=== PATIENT | female | born 1970 | race Caucasian/White ===

== ENCOUNTER → 2016-11-12 | Outpatient (CLI) | payer OTHER ==
--- NOTE | 2016-11-12 10:46 | REP ---
BILATERAL MAMMOGRAM: FAMILY HISTORY: Breast cancer in sister at age 40. Moderately dense fibroglandular tissue is seen bilaterally in a heterogeneous pattern. A rounded nodular opacity laterally on the left CC view measures 9 mm in diameter and is not definitely seen on the left MLO view. No other definite mass or architectural distortion is seen. No clustered microcalcifications are seen. IMPRESSION: ACR 0, incomplete. 9 mm nodular density lateral left breast on the CC view is not seen on the MLO view. Recommend spot compression views and ultrasound to further evaluate. ACR 0, incomplete. Given the patient's family history and dense breast parenchyma, I would also recommend an MRI of the breasts. BI-RADS/ACR category 0 mammogram, incomplete. Additional imaging and/or prior images are needed before a final assessment can be assigned. This mammogram was interpreted with the aid of an FDA-approved computer-aided detection system. The patient states she/he had a clinical breast exam in 10/2016. The patient letter being requested is M0. Signed by Torin Brandon MD 11/13/2016 04:40 P
== END ==
LOC: M RAD 08:46
PROVIDERS: ATTEND Obstetrics & Gynecology
DX: Z12.4 Encounter for screening for malignant neoplasm of cervix (principal)

== ENCOUNTER → 2016-11-27 | Outpatient (CLI) | payer OTHER ==
--- NOTE | 2016-11-27 16:55 | REP ---
DIAGNOSTIC MAMMOGRAM LEFT BREAST: Multiple spot compression views left breast performed to evaluate a possible nodular opacity seen on the recent mammogram 11/12/2016, on the left CC view. The nodular density appears to compress out to an unchanged appearance compared to other multiple prior exams. I do not see a definite persisting nodule. Real-time sonographic evaluation of the outer left breast demonstrates dense fibroglandular tissue. There does appear to be a bilobed cyst at 2 o'clock position measuring 9 x 7 x 10 mm. IMPRESSION: ACR 2 benign. Suspected nodular opacity laterally in the left breast does not definitely persist on spot compression views. There is a bilobed cyst in that region. The findings appear benign. Recommend followup mammogram in one year. The patient letter being requested is M1. Signed by Torin Brandon MD 11/28/2016 07:55 P
== END ==
LOC: M RAD 13:52
PROVIDERS: ATTEND Obstetrics & Gynecology
DX: R06.83 Snoring (principal)

== ENCOUNTER → 2017-08-22 | Outpatient (REF) | payer OTHER ==
[2017-08-22 15:45] LABS: INFLUENZA A AMPLIFICATION POSITIVE (NEGATIVE); INFLUENZA B AMPLIFICATION NEGATIVE (NEGATIVE)
== END ==
LOC: M LAB REF 14:23
DX: J11.1 Influenza due to unidentified influenza virus with other respiratory manifestations (principal)

== ENCOUNTER → 2017-12-16 | Outpatient (CLI) | payer OTHER | LOC: M RAD 11:31 | DX: Z12.31 Encounter for screening mammogram for malignant neoplasm of breast (principal) | CPT/HCPCS: 77067 ==

== ENCOUNTER → 2018-12-21 | Outpatient (CLI) | payer OTHER ==
--- NOTE | 2018-12-21 08:52 | REPMRS ---
Patient History The patient states she had a clinical breast exam in November 2018. Family history of breast cancer at age 40 in sister, unknown cancer under age 50 in paternal grandmother. Took hormonal contraceptives for 2 years. Took unspecified hormones for 1 year. 3D TOMOSYNTHESIS WAS PERFORMED. Digital Mammo Screening Bilat: December 21, 2018 - Exam #: [id number] Bilateral CC and MLO view(s) were taken. Technologist: Joseline Juárez, Technologist Prior study comparison: December 16, 2017, bilateral digital mammo screening bilat performed at [facility]. November 27, 2016, left breast digital mammo diagnostic unilateral performed at [facility]. FINDINGS: The breast tissue is heterogeneously dense. This may lower the sensitivity of mammography. There has been no change in the appearance of the mammogram from the prior studies. There is a moderate amount of residual fibroglandular tissue which is fairly symmetric. There is no interval development of dominant mass, areas of architectural distortion, or clustered microcalcification typical of malignancy. Assessment: BI-RADS/ACR category 1 mammogram. Negative Mammogram. Recommendation Routine screening mammogram in 1 year (for women over age 40). This mammogram was interpreted with the aid of an FDA-approved computer-aided dectection system. Electronically Signed By: Torin Brandon MD 12/21/18 0852
== END ==
LOC: M RAD 07:18
PROVIDERS: ATTEND Obstetrics & Gynecology
DX: Z12.31 Encounter for screening mammogram for malignant neoplasm of breast (principal); Z80.3 Family history of malignant neoplasm of breast; Z92.0 Personal history of contraception

== ENCOUNTER → 2019-01-19 | Outpatient (REF) | payer OTHER ==
[2019-01-19 13:32] LABS: HEMATOCRIT 42.8 % (36.0-47.0); HEMOGLOBIN 14.3 g/dl (12.0-15.5); MEAN CORPUSCULAR HEMOGLOBIN 31.7 pg (27.0-33.0); MEAN CORPUSCULAR HGB CONC 33.4 g/dl (32.0-36.5); MEAN CORPUSCULAR VOLUME 94.9 fl (80.0-96.0); PLATELET COUNT, AUTOMATED 312 10^3/uL (150-450); RED BLOOD COUNT 4.51 10^6/uL (4.00-5.40); WHITE BLOOD COUNT 5.5 10^3/uL (4.0-10.0)
[2019-01-19 13:55] LABS: FOLLICLE STIMULATING HORMONE 35.5 mIU/mL; FREE T4 0.78 NG/DL (0.76-1.46); LUTEINIZING HORMONE 23.1 mIU/mL; THYROID STIMULATING HORMONE 1.63 uIU/ML (0.358-3.740)
== END ==
LOC: M LAB REF 12:38
PROVIDERS: ATTEND Obstetrics & Gynecology
DX: N92.1 Excessive and frequent menstruation with irregular cycle (principal)

== ENCOUNTER → 2020-01-05 | Outpatient (REF) | payer OTHER ==
[~2020-01-05] MED LIST: AZEL0.05 OD; AZEL0.1S NARES; BUPR50TA PO; CETI5SOL3 PO; FLON1SPR; LEXA1TAB2 PO; MORP15TASA PO; OXYC-517 PO; PROP60TA14 PO; QC A650T3 PO; VITA500075 PO; WELLTAB38 PO; XARE10TA PO; ZYRTTAB8 PO
[2020-01-05 12:49] LABS: HEMATOCRIT 39.6 % (36.0-47.0); HEMOGLOBIN 13.4 g/dl (12.0-15.5); MEAN CORPUSCULAR HEMOGLOBIN 31.5 pg (27.0-33.0); MEAN CORPUSCULAR HGB CONC 33.8 g/dl (32.0-36.5); PLATELET COUNT, AUTOMATED 285 10^3/uL (150-450); RED BLOOD COUNT 4.26 10^6/uL (4.00-5.40)
[2020-01-05 13:26] LABS: ALBUMIN 3.5 GM/DL (3.2-5.2); ALT/SGPT 88 U/L (12-78); BILIRUBIN,TOTAL 0.4 MG/DL (0.2-1.0); BLOOD UREA NITROGEN 10 MG/DL (7-18); CALCIUM LEVEL 8.6 MG/DL (8.5-10.1); CARBON DIOXIDE LEVEL 28 MEQ/L (21-32); CHLORIDE LEVEL 108 MEQ/L (98-107); CREATININE FOR GFR 0.72 MG/DL (0.55-1.30); FREE T4 0.84 NG/DL (0.76-1.46); GLOMERULAR FILTRATION RATE > 60.0 (>58); GLUCOSE, FASTING 119 MG/DL (70-100); POTASSIUM SERUM 4.2 MEQ/L (3.5-5.1); SODIUM LEVEL 143 MEQ/L (136-145); TOTAL PROTEIN 6.7 GM/DL (6.4-8.2)
[2020-01-06 18:19] LABS: TOTAL 25(OH) VITAMIN D 43.5 NG/ML (30.0-100.0); VITAMIN B12 LEVEL 742 PG/ML
[2020-01-06 18:20] LABS: FOLATE 15.5 NG/ML
== END ==
LOC: M SFHCADAM 10:47
PROVIDERS: ATTEND Physician Assistant
DX: R53.82 Chronic fatigue, unspecified (principal); E53.9 Vitamin B deficiency, unspecified; Z01.818 Encounter for other preprocedural examination; E53.8 Deficiency of other specified B group vitamins

== ENCOUNTER → 2020-01-06 | Outpatient (CLI) | payer OTHER | LOC: M LABSMTC 10:57 | PROVIDERS: ATTEND Anesthesiology | DX: Z11.59 Encounter for screening for other viral diseases (principal) | CPT/HCPCS: C9803; U0003 ==

== ENCOUNTER 2020-01-09 06:52 | Inpatient (IN) | payer OTHER ==
--- NOTE | 2020-01-06 06:35 | HPE ---
DATE OF PLANNED ADMISSION: 01/09/2020 PREOPERATIVE PHYSICAL: Kat Carlson is a pleasant 49-year-old female with a flat foot deformity and bunion who presents for preoperative appointment. She continues to have pain in the medial aspect of her foot and a bunion deformity. She has failed conservative measures. PAST MEDICAL HISTORY: Positive for anxiety and depression. She is otherwise healthy. ALLERGIES: To PENICILLIN. PREVIOUS SURGERIES: She had a tubal in 2010 and sinus surgery in 1999. SOCIAL HISTORY: She does not smoke. She occasionally uses alcohol. PHYSICAL EXAMINATION: GENERAL: Well appearing, alert and oriented, in no acute distress. PULMONARY: Regular nonlabored breathing. CARDIOVASCULAR: Regular rate and rhythm. ABDOMEN: Soft and nontender. MUSCULOSKELETAL: Advanced flat foot deformity with pain along the medial aspect of the foot and ankle and hallux valgus deformity. She is neurovascularly intact. IMAGING: Radiographs of the ankle and foot demonstrate a hallux valgus deformity and flat foot deformity. IMPRESSION: Left foot flat foot deformity and hallux valgus deformity. PLAN: Flat foot reconstruction, including a flexor digitorum longus (FDL) transfer, medializing calcaneal osteotomy, possible gastrocnemius resection, possible lateral column lengthening. I will also fix her bunion with a Lapidus/Jarret procedure and possible 1st metatarsophalangeal (MTP) fusion given the severity of her bunion. Risks and benefits of the surgery were discussed with the patient in detail and include, but are not limited to, infection, damage to nerves and blood vessels, continued pain and stiffness, need for additional procedures. Informed consent was obtained. She will spend one night in the hospital.
[~2020-01-09] VITALS: Ht 170.2 cm; Wt 96.6 kg
[~2020-01-09 06:52] MED LIST changes: +LIDOCAINE 1% MDV 20ML VIAL SQ PRN; +MIDAZOLAM INJ 2MG/2ML VIAL (J2250 PER 1MG) IV SCH; -MORP15TASA PO; -OXYC-517 PO; -QC A650T3 PO; -XARE10TA PO; +fentaNYL 100 MCG/2 ML INJECTION (J3010) IV SCH
[2020-01-09] MEDS ORDERED: LR 1,000 ML IV ONE (07:00)
[2020-01-09] MEDS ORDERED: CLINDAMYCIN 900 MG in IV 1 EA IV ONE (07:00)
[2020-01-09] MEDS ORDERED: BUPIVACAINE HCL 0.25% 30ML VIAL As Ordered ONE (08:09)
[2020-01-09] MEDS: BUPIVACAINE HCL 0.5% 30 ML VIAL As Ordered ONE ×2 (08:09→14:07)
[2020-01-09] MEDS ORDERED: MIDAZOLAM INJ 2MG/2ML VIAL (J2250 PER 1MG) As Ordered ONE ×2 (08:27→09:00)
[2020-01-09] MEDS ORDERED: fentaNYL 100 MCG/2 ML INJECTION (J3010) As Ordered ONE (08:27)
[2020-01-09] MEDS ORDERED: ONDANSETRON 4MG/2ML VIAL As Ordered ONE (09:00)
[2020-01-09] MEDS ORDERED: propofoL 200 MG/20 ML VIAL As Ordered ONE (09:00)
[2020-01-09] MEDS ORDERED: fentaNYL 250 MCG/5 ML INJECTION (J3010) As Ordered ONE (09:00)
[2020-01-09] MEDS ORDERED: ROCURONIUM BROMIDE 50 MG/5 ML VIAL As Ordered ONE ×3 (09:00→12:13)
[2020-01-09] MEDS ORDERED: METOCLOPRAMIDE INJ 10MG/2ML VIAL (J2765 PER 1) As Ordered ONE (09:00)
[2020-01-09] MEDS ORDERED: dexameTHASONE 4 MG/ML 1ML VIAL (J1100 PER 1MG) As Ordered ONE (09:00)
[2020-01-09] MEDS ORDERED: SEVOFLURANE INHAL SOLN 250 ML BTL As Ordered ONE (09:00)
[2020-01-09] MEDS ORDERED: SUGAMMADEX SODIUM 500 MG/5 ML VIAL (BRIDION) As Ordered ONE (09:00)
[2020-01-09] MEDS ORDERED: LIDOCAINE 2% 100MG/5ML SDV (FOR ANES.) As Ordered ONE (09:00)
[2020-01-09] MEDS ORDERED: fentaNYL 100 MCG/2 ML INJECTION (J3010) IV ONE (09:15)
[2020-01-09] MEDS ORDERED: MIDAZOLAM INJ 2MG/2ML VIAL (J2250 PER 1MG) IV ONE (09:15)
[2020-01-09] MEDS ORDERED: HYDROmorphone HCL 2 MG/ML 1ML VIAL (J1170) As Ordered ONE (10:48)
[2020-01-09] MEDS ORDERED: ACETAMINOPHEN 1000MG 100ML IV BTL (OFIRMEV) (J0131 PER 10MG) As Ordered ONE (10:49)
[2020-01-09] MEDS ORDERED: ROPIvacaine 0.5% 30ML INJECTION (J2795 PER 1MG) ONE (12:57)
[2020-01-09] MEDS ORDERED: EPINEPHrine INJ 1 MG/ML 1ML AMP ONE (12:57)
[2020-01-09] MEDS ORDERED: dexameTHASONE 10MG/1ML VIAL PRES.FREE (J1100 PER 1MG) ONE (12:57)
[2020-01-09] MEDS ORDERED: DESFLURANE 240 ML INHALANT As Ordered ONE (13:09)
--- NOTE | 2020-01-09 13:13 | REP ---
C-ARM VIEWS CALCANEUS: Three C-arm views calcaneus performed. Two screws are placed in the calcaneus. The osseous structures are well aligned. 1 minute 12 seconds of fluoroscopy time utilized. Electronically Signed by Torin Brandon MD 01/09/2020 07:31 P
[2020-01-09] MEDS ORDERED: KETOROLAC 60MG 2ML VIAL As Ordered ONE (13:48)
[2020-01-09] MEDS: ACETAMINOPHEN 500 MG TAB PO SCH ×2 (14:00→21:06)
[2020-01-09] MEDS ORDERED: MORPHINE 2 MG/ML 1ML VIAL (J2270) IV PRN ×2 (14:45→15:00)
[2020-01-09] MEDS ORDERED: LR 1,000 ML IV SCH (14:45)
[2020-01-09] MEDS ORDERED: fentaNYL 100 MCG/2 ML INJECTION (J3010) IV PRN (14:45)
[2020-01-09] MEDS ORDERED: ONDANSETRON 4MG/2ML VIAL IV PRN (14:45)
[2020-01-09] MEDS: LR 1,000 ML IV SCH (14:45)
[2020-01-09] MEDS ORDERED: oxyCODONE 5MG TAB PO PRN ×2 (14:45→15:00)
[2020-01-09] MEDS ORDERED: CLINDAMYCIN 900 MG in IV 1 EA IV SCH (15:00)
[2020-01-09 15:30] VITALS: BP 119/64
[2020-01-09 16:00] VITALS: BP 119/70
[2020-01-09] MEDS: CLINDAMYCIN 900 MG in IV 1 EA IV SCH ×2 (16:06→21:05)
[2020-01-09 17:00] VITALS: BP 123/93
--- NOTE | 2020-01-09 17:22 | REP ---
66 seconds of fluoroscopy time was provided to Dr. Castanon for 1st tarsometatarsal fusion of the left foot. Multiple fixation screws in a single internal fixation plate are seen fusing the first tarsometatarsal joint. Electronically Signed by Percy Murdock DO 01/09/2020 07:10 P
[2020-01-09] MEDS: oxyCODONE 5MG TAB PO PRN ×2 (17:55→23:24)
[2020-01-09 18:00] VITALS: BP 122/81
[2020-01-09 19:00] VITALS: BP 102/56
[2020-01-09 20:55] VITALS: BP 102/62
[2020-01-10] MEDS: LR 1,000 ML IV SCH (00:45)
[2020-01-10 02:30] VITALS: BP 110/64
[2020-01-10] MEDS: oxyCODONE 5MG TAB PO PRN ×3 (03:31→12:39)
[2020-01-10] MEDS: CLINDAMYCIN 900 MG in IV 1 EA IV SCH (03:32)
[2020-01-10] MEDS: ACETAMINOPHEN 500 MG TAB PO SCH ×2 (05:33→14:08)
[2020-01-10 05:46] VITALS: BP 117/68
[2020-01-10] MEDS ORDERED: OXYC-517 PO (06:47)
[2020-01-10] MEDS ORDERED: XARE10TA PO (06:47)
[2020-01-10] MEDS ORDERED: QC A650T3 PO (06:47)
[2020-01-10 10:00] VITALS: BP 123/79
[2020-01-10] MEDS ORDERED: MORPHINE 15 MG SA TAB PO ONE (10:30)
[2020-01-10] MEDS ORDERED: MORP15TASA PO (12:29)
[2020-01-10] MEDS ORDERED: RIVAROXABAN 10 MG TAB (XARELTO) PO SCH (18:00)
--- NOTE | 2020-01-11 13:33 | RO ---
DATE OF PROCEDURE: 01/09/2020 PREOPERATIVE DIAGNOSIS: Left flatfoot deformity with associate hallux valgus deformity and instability of the 1st ray. POSTOPERATIVE DIAGNOSIS: Left flatfoot deformity with associate hallux valgus deformity and instability of the 1st ray. PROCEDURES: 1. Left 1st tarsometatarsal arthrodesis for arthritis. 2. Left flexor digitorum longus transfer to the navicular. 3. Left medializing calcaneal osteotomy. 4. Left modified Brantley procedure. 5. Left medial eminence resection. 6. C-arm of the left foot, three views with the mini C-arm. SURGEON: Wendie Castanon MD RACING SECRETARY: Luis Archer PA-C ESTIMATED BLOOD LOSS (EBL): 100 mL. COMPLICATIONS: None. IMPLANTS: Synthes 4.5-mm cannulated screws times two, Arthrex 1st tarsometatarsal (TMT) arthrodesis plate with associated screws, and a 4.0-mm cannulated lag screw. COMPLICATIONS: None. CONDITION: Stable to recovery. INDICATIONS: Kat Carlson is a 49-year-old female with longstanding pain and deformity due to a flatfoot deformity and a hallux valgus deformity with unstable 1st ray. She has failed conservative measures. The risks and benefits of surgery were discussed with the patient in detail and include but are not limited to infection, damage to nerves and blood vessels, continued pain and stiffness, need for additional procedures. Informed consent was obtained in the office. DESCRIPTION OF PROCEDURE: The patient was met in the preoperative holding area, where her left lower extremity was marked as the correct operative site. She underwent a popliteal nerve block by the anesthesia team. She was taken to the operating room and placed in the supine position on the operating room table. Bony prominences were well padded. A well-padded tourniquet was place on her left upper thigh. She was given antibiotics within 60 minutes prior to incision. An official time-out was held where the correct patient, operative site, and operative procedure were verified. Following this, the leg was exsanguinated, and the tourniquet was inflated to 250 mmHg. It was up for 108 minutes before being let down and then later reinflated. Incision was made laterally over the calcaneal tuberosity. Careful dissection to the tuberosity was performed. Osteotomy was marked using 0.062 K wires. This was satisfactory on lateral C-arm film. The K wires were removed, and cut was made with 40-mm saw. I was able to translate the heel medially approximately 8-10 mm. This was pinned in place and then later secured with two 4.5-mm Synthes cannulated screws. X-rays using the large C-arm on lateral and Arce heel view showed satisfactory translation of the heel and hardware placement. Next, the foot was assessed using the mini C-arm in AP view of the foot. There was satisfactory talar head covering, and so decision was made not to proceed with the lateral column lengthening. At this point, an incision was made medially over the posterior tibial tendon. The tendon was exposed and had significant fluid and tenosynovitis surrounding it. It was approximately ten times in diameter of the normal size with a large partial tear throughout the length of the tendon. The tendon was excised, leaving a small stump at the navicular. Next, the flexor digitorum longus (FDL) tendon was identified in the floor of the posterior tibial tendon sheath. It was traced to the midfoot and transected with the #15 blade. A 2.0 FiberWire was used to whipstitch the tendon. It was transferred to the posterior tibial tendon subnavicular at the end of the case. At this point, attention was turned to the 1st ray. An incision was made over the medial eminence. Capsule was incised. There was moderate to severe arthritis throughout the 1st metatarsophalangeal (MTP) joint. The medial eminence was excised. Care was taken to protect the dorsomedial sensory nerve. Next, incision was made in the 1st web space. The lateral sesamoid was approached. Crossing vessels were coagulated. A lateral release was performed in the interval between the lateral sesamoid and 1st metatarsal head. I was able to gain satisfactory reduction of the toe following release. At this point, incision was made over the 1st TMT joint. Superficial nerves were retracted. The capsule was incised. There was significant instability to the TMT joint. Cartilages remained off both medial cuneiform and 1st metatarsal. I made flat cuts using a long 38 saw with care to take more laterally, producing a small lateral wedge to allow for correction of deformity. I then was able to correct the intramedullary (IM) angle and very slightly plantarflex the toe to correct the supination in the forefoot. This was pinned in place. Flatfoot was checked, and there was satisfactory alignment of the foot itself. There was also nice correction of the patient's IM angle. The 1st TMT arthrodesis was then secured using an Arthrex 4.0 cannulated screw, 15-mm, and an Arthrex 1st TMT arthrodesis plate with associated cortical locking screws. This gave nice fixation and good compression across the joint. Using the mini C-arm, x-rays were performed on AP, oblique, and lateral view, and hardware and foot alignment were found to be satisfactory with care taken to the 1st TMT joint. At this point, the sesamoids were reduced. I considered doing Jarret osteotomy. However, with closure of the capsule, overall there was nice correction on the toe, and I did not want to put the toe in varus. At this point, capsule was tightened, and excess capsule was removed. It was secured in place with 2.0 FiberWire. Again, there was nice reduction of the toe and hallux valgus deformity at this point. The FDL tendon had previously been brought through the stump of the posterior tibial tendon. I had considered using a reamer to drill a hole through the navicular. However, the wire had shifted slightly during reaming and was becoming too close to the lateral cortex. So, a decision was made to sew this to the posterior tibial stump and surrounding tissues using a combo of 2.0 FiberWire and #2 FiberWire. This was tied down with the foot in slight inversion. Finally, copious irrigation was performed. Demineralized bone matrix (DBM) putty was placed over the 1st TMT joint, and the capsule was closed. Final x-rays were performed and found to be satisfactory. A flat plate was used, and there was good position of the foot, which was flat to the flat plate, and heel was in neutral. All wounds were closed using 3-0 Vicryl and 3-0 nylon. Marcaine was used medially. A sterile dressing was applied, followed by a well-padded splint. The patient was extubated and transferred to the recovery room in stable condition. Luis Archer PA-C, was present for the entire case and was essential for soft tissue retraction, hardware placement, help with correction of deformity, and overall decrease in tourniquet time, as well as skin closure. PLAN: The patient will be nonweightbearing for 8 weeks. She will be admitted to the hospital overnight for pain control. She will be on Xarelto for deep venous thrombosis (DVT) prophylaxis.
== END 2020-01-10 14:00 | disposition home or self-care (01) | DRG 314 ==
LOC: M OR 06:52 → M MS5PR 15:27
PROVIDERS: ADMIT Orthopaedic Surgery; ATTEND Orthopaedic Surgery
PROC: 0LBT0ZZ Excision of Left Ankle Tendon, Open Approach (ICD-10-PCS; 2020-01-09)
PROC: 0LXW0ZZ Transfer Left Foot Tendon, Open Approach (ICD-10-PCS; 2020-01-09)
PROC: 0SBN0ZZ Excision of Left Metatarsal-Phalangeal Joint, Open Approach (ICD-10-PCS; 2020-01-09)
PROC: 0LBW0ZZ Excision of Left Foot Tendon, Open Approach (ICD-10-PCS; 2020-01-09)
PROC: 0SGL04Z Fusion of Left Tarsometatarsal Joint with Internal Fixation Device, Open Approach (ICD-10-PCS; principal; 2020-01-09 08:30)
DX: M21.42 Flat foot [pes planus] (acquired), left foot (principal); E53.8 Deficiency of other specified B group vitamins; M20.12 Hallux valgus (acquired), left foot; M21.612 Bunion of left foot; F32.9 Major depressive disorder, single episode, unspecified; E55.9 Vitamin D deficiency, unspecified; J30.9 Allergic rhinitis, unspecified; K21.9 Gastro-esophageal reflux disease without esophagitis; G43.909 Migraine, unspecified, not intractable, without status migrainosus; G25.0 Essential tremor; G47.33 Obstructive sleep apnea (adult) (pediatric); Z79.899 Other long term (current) drug therapy; Z88.0 Allergy status to penicillin; Z88.8 Allergy status to other drugs, medicaments and biological substances; Z91.018 Allergy to other foods; Z87.891 Personal history of nicotine dependence

== ENCOUNTER → 2020-06-13 | Outpatient (CLI) | payer OTHER ==
[~2020-06-13] MED LIST changes: +BUPR-69 PO; -BUPR50TA PO; -LIDOCAINE 1% MDV 20ML VIAL SQ PRN; +METH36TA2 PO; -MIDAZOLAM INJ 2MG/2ML VIAL (J2250 PER 1MG) IV SCH; +MORP15TASA PO; +OXYC-517 PO; +QC A650T3 PO; +XARE10TA PO; -fentaNYL 100 MCG/2 ML INJECTION (J3010) IV SCH
== END ==
LOC: M LABSMTC 14:40
PROVIDERS: ATTEND Anesthesiology
DX: Z01.812 Encounter for preprocedural laboratory examination (principal); Z20.828 Contact with and (suspected) exposure to other viral communicable diseases

== ENCOUNTER 2020-06-18 12:21 | Day surgery (SDC) | payer OTHER ==
[~2020-06-18] VITALS: Ht 172.7 cm; Wt 91.5 kg
[~2020-06-18 12:21] MED LIST changes: +CLINDAMYCIN 900 MG in IV 1 EA IV ONE; +LR 1,000 ML IV ONE
[2020-06-18] MEDS ORDERED: LIDOCAINE 1% MDV 20ML VIAL XX ONE (14:15)
[2020-06-18] MEDS ORDERED: ROPIvacaine 0.5% 30ML INJECTION (J2795 PER 1MG) XX ONE (14:15)
[2020-06-18] MEDS ORDERED: PROPRANOLOL 20 MG TAB PO ONE (14:15)
[2020-06-18] MEDS ORDERED: fentaNYL 100 MCG/2 ML INJECTION (J3010) IV PRN ×2 (14:15→20:15)
[2020-06-18] MEDS ORDERED: MIDAZOLAM INJ 2MG/2ML VIAL (J2250 PER 1MG) IV PRN (14:15)
[2020-06-18] MEDS ORDERED: dexameTHASONE 10MG/1ML VIAL PRES.FREE (J1100 PER 1MG) XX ONE (14:15)
[2020-06-18] MEDS ORDERED: PROP20TA72 PO (14:16)
[2020-06-18] MEDS ORDERED: MIDAZOLAM INJ 2MG/2ML VIAL (J2250 PER 1MG) As Ordered ONE (16:25)
[2020-06-18] MEDS ORDERED: propofoL 200 MG/20 ML VIAL As Ordered ONE (16:25)
[2020-06-18] MEDS ORDERED: fentaNYL 250 MCG/5 ML INJECTION (J3010) As Ordered ONE (16:25)
[2020-06-18] MEDS ORDERED: ROCURONIUM BROMIDE 50 MG/5 ML VIAL As Ordered ONE (16:25)
[2020-06-18] MEDS ORDERED: LIDOCAINE 2% 100MG/5ML SDV (FOR ANES.) As Ordered ONE (16:25)
[2020-06-18] MEDS ORDERED: KETOROLAC 60MG 2ML VIAL As Ordered ONE (17:41)
[2020-06-18] MEDS ORDERED: ONDANSETRON 4MG/2ML VIAL As Ordered ONE (17:41)
[2020-06-18] MEDS ORDERED: dexameTHASONE 4 MG/ML 1ML VIAL (J1100 PER 1MG) As Ordered ONE (17:41)
[2020-06-18] MEDS ORDERED: SUGAMMADEX SODIUM 500 MG/5 ML VIAL (BRIDION) As Ordered ONE (17:42)
[2020-06-18] MEDS ORDERED: oxyCODONE 5MG TAB PO PRN (20:15)
[2020-06-18] MEDS ORDERED: KETOROLAC 30 MG/ML 1ML VIAL IV PRN (20:15)
[2020-06-18] MEDS ORDERED: HYDROMORPHONE HCL 0.5 MG/ 0.5 ML SYRINGE (J1170 PER 1) IV PRN (20:15)
[2020-06-18] MEDS ORDERED: LR 1,000 ML IV SCH ×2 (20:15)
[2020-06-18] MEDS ORDERED: ONDANSETRON 4MG/2ML VIAL IV PRN (20:15)
[2020-06-18 20:49] VITALS: BP 119/75
--- NOTE | 2020-06-18 20:51 | REP ---
INDICATION: FLUORO COMPARISON: None. TECHNIQUE: Intraoperative fluoroscopic imaging using portable C-arm technique. FINDINGS: Patient appears to be status post fixation at the 1st metatarsophalangeal joint. Satisfactory alignment is appreciated. Total fluoroscopic time 115 seconds IMPRESSION: Status post fixation at the 1st MTP joint.. <Electronically signed by Garcia Bo > 06/18/20 [id number]
--- NOTE | 2020-06-19 12:22 | RO ---
OPERATIVE NOTE DATE: 06/18/2020 PREOPERATIVE DIAGNOSIS: Left recurrent hallux valgus deformity and ligamentous laxity, left foot. POSTOPERATIVE DIAGNOSIS: Left recurrent hallux valgus deformity and ligamentous laxity, left foot. PROCEDURE: Left first metatarsophalangeal joint arthrodesis. SURGEON: Wendie Castanon M.D. GATE CLERK: Kishor Jay PA-C ANESTHESIA: General endotracheal and popliteal nerve block ESTIMATED BLOOD LOSS: 25 mL COMPLICATIONS: None. CONDITION: Stable to recovery. IMPLANTS: Arthrex first MTP fusion plate and 3.0 mm cannulated screw. INDICATIONS: Kat Carlson is a 49-year-old female who has a significant ligamentous laxity throughout her left foot and developed a recurrent hallux valgus deformity status post a Lapidus procedure. She has elected for a first MTP fusion. Risks and benefits of surgery were discussed with her in detail and include but are not limited to infection, damage to nerves or blood vessels, continued pain and stiffness, need for additional procedures. Informed consent was obtained. DESCRIPTION OF PROCEDURE: The patient was met in the preoperative holding areas where her left lower extremity was marked as the correct operative site. She underwent a popliteal nerve block. She was taken to the operating room where she was placed in the supine position on the operating room table. A well-padded tourniquet was placed on the left upper thigh. Antibiotics were given within 60 minutes prior to incision. An official timeout was held and the correct patient, operative site and operative procedure were verified. The leg was exsanguinated with an Esmarch and tourniquet was inflated to 275 mmHg. Using the patient's prior medial incision, the first MTP joint was approached. The EHL tendon was retracted. The capsule was incised. Crossing vessels were coagulated. There was moderate arthritis in the dorsal aspect of the first MTP joint. All cartilage on both sides of joint was removed. The subchondral bone was drilled using a 0.062 K-wire and fish scaled using a hook osteotome. The toe was difficult to reduce given the significant pronation deformity any simulated weightbearing. I was able to get it pinned approximately but using a flat plate, the toe would tend to pronate. Decision was made to use the plate to help reduce the toe. An Arthrex standard first MTP plate was selected. It was secured distally with two locking screws. I then reduced the toe to an appropriate position and placed a compression screw through the compression hole. This was backed out slightly and then I placed a cannulated lag screw across the joint which had good compression. The compression screw was then further tightened down and there was good compression across the first MTP joint on AP, lateral and oblique views. I used a flat plate multiple times to ensure that the pronation of the toe was corrected and that there was adequate space between the first and second toe without the toe going into varus. There was adequate alignment of the toe. I also took simulated weightbearing x-rays using the mini-C-arm in AP view and again alignment was satisfactory. The plate was further secured using locking screws proximally. Copious irrigation was performed. DBX putty was placed across the joint. The capsule was closed with 2-0 Vicryl. The skin was closed with 3-0 Vicryl and 3-0 nylon. A well-padded dressing was applied. The patient was placed into a well-padded splint. JOSE E Gong was present for the entire case and was essential for soft tissue retraction, hardware placement and overall decrease in tourniquet time. PLAN: The patient will be nonweightbearing for six weeks. I will see her back in two weeks for x-rays and placement into a boot. edited: 06/20/2020 1505 tkf [facility]ITAL[facility]
== END 2020-06-18 21:10 | disposition home or self-care (01) ==
LOC: M SDC 12:21
PROVIDERS: ATTEND Orthopaedic Surgery
DX: M20.12 Hallux valgus (acquired), left foot (principal); I10 Essential (primary) hypertension; E78.49 Other hyperlipidemia; K21.9 Gastro-esophageal reflux disease without esophagitis; G47.30 Sleep apnea, unspecified; Z86.73 Personal history of transient ischemic attack (TIA), and cerebral infarction without residual deficits; F32.9 Major depressive disorder, single episode, unspecified; F41.9 Anxiety disorder, unspecified; Z79.899 Other long term (current) drug therapy
CPT/HCPCS: 28750; 64445; 73630; C1713; C1762; J1100; J1885; J2250; J2405; J3010

== ENCOUNTER → 2021-03-06 | Outpatient (CLI) | payer OTHER ==
[~2021-03-06] MED LIST changes: -CLINDAMYCIN 900 MG in IV 1 EA IV ONE; -LR 1,000 ML IV ONE; +PROP20TA72 PO
--- NOTE | 2021-03-06 11:12 | REP ---
INDICATION: LAWSON SCR MAMMO/Z12.31. COMPARISON: Multiple TECHNIQUE: Digital screening mammography was carried out bilaterally in the CC and MLO projections using both 2D and 3D modalities and compared to the prior exams. By history, the patient has no complaints of a palpable breast abnormality or other significant breast complaints. FINDINGS: The breasts are unchanged in size and shape. Once again dense heterogenous somewhat nodular fibroglandular elements are seen bilaterally in a stable appearing pattern. There are no ines soft tissue densities or spiculated masses. There is no internal architectural distortion. There are no suspicious calcifications. Stable benign calcifications are again seen bilaterally. There is no skin thickening or nipple retraction. The Volpara volumetric breast density pattern is b. IMPRESSION: BIRADS/ACR category 2 benign findings. There is no evidence of malignant alteration of the breasts. This patient's Tyrer-Cuzick lifetime breast cancer risk assessment score is 14%. This mammogram was interpreted with the aid of an FDA-approved computer-aided detection system. The patient states she had a clinical breast exam in December 2020. The patient letter being requested is M1. RECOMMENDATION: Repeat screening mammography recommended 1 year (for women over 40). <Electronically signed by Percy Murdock > 03/06/21 [id number]
== END ==
LOC: M WHC 10:18
PROVIDERS: ATTEND Advanced Practice Midwife
DX: Z12.31 Encounter for screening mammogram for malignant neoplasm of breast (principal)

== ENCOUNTER 2021-03-08 16:20 | Emergency (ER) | payer OTHER ==
[~2021-03-08] VITALS: Ht 172.7 cm; Wt 94.0 kg
[2021-03-08 16:26] VITALS: BP 114/88
--- NOTE | 2021-03-08 17:49 | REP ---
INDICATION: pain after hitting foot, deformity 5th toe COMPARISON: None. TECHNIQUE: AP, lateral, bilateral oblique views right 5th toe. FINDINGS: There is a mildly displaced fracture through the 5th toe proximal phalangeal shaft. IMPRESSION: Fracture of the 5th proximal phalanx. <Electronically signed by Garcia Bo > 03/08/21 [id number]
[2021-03-08] MEDS ORDERED: ACETAMINOPHEN 500 MG TAB PO ONE (20:20)
[2021-03-08] MEDS ORDERED: IBUPROFEN 600MG TAB PO ONE (20:20)
[2021-03-08] MEDS ORDERED: NORCO 5/325MG TABLET (BULK FOR ED) PO ONE (20:25)
--- NOTE | 2021-03-08 21:41 | REPVR ---
PROCEDURE INFORMATION: Exam: XR Right Toe(s) Exam date and time: 03/08/2021 9:11 PM Age: 50 years old Clinical indication: Other: Pain; Additional info: Post reduction TECHNIQUE: Imaging protocol: XR Right toes. Views: Minimum 2 views. COMPARISON: CR Toes 03/08/2021 5:03 PM FINDINGS: Bones/joints: Oblique fracture of the mid aspect of the proximal phalanx of the 5th toe with mild lateral angulation. Soft tissues: Normal. IMPRESSION: Oblique fracture of the mid aspect of the proximal phalanx of the 5th toe with mild lateral angulation of the distal fragment. Electronically signed by: Westley Jj On 03/08/2021 21:41:03 PM
== END 2021-03-08 21:45 | disposition home or self-care (01) ==
LOC: M ED 16:20
DX: S92.511A Displaced fracture of proximal phalanx of right lesser toe(s), initial encounter for closed fracture (principal); W22.8XXA Striking against or struck by other objects, initial encounter; Y92.018 Other place in single-family (private) house as the place of occurrence of the external cause; G25.0 Essential tremor; K21.9 Gastro-esophageal reflux disease without esophagitis; Z79.899 Other long term (current) drug therapy; Z88.0 Allergy status to penicillin; Z88.8 Allergy status to other drugs, medicaments and biological substances; Z91.018 Allergy to other foods

== ENCOUNTER → 2021-03-12 | Outpatient (REF) | payer OTHER ==
[2021-03-12 12:48] LABS: HEMATOCRIT 43.8 % (36.0-47.0); HEMOGLOBIN 14.6 g/dl (12.0-15.5); MEAN CORPUSCULAR HGB CONC 33.3 g/dl (32.0-36.5); PLATELET COUNT, AUTOMATED 292 10^3/uL (150-450); RED BLOOD COUNT 4.71 10^6/uL (4.00-5.40); WHITE BLOOD COUNT 5.8 10^3/uL (4.0-10.0)
[2021-03-12 14:09] LABS: ALBUMIN 3.7 GM/DL (3.2-5.2); ALT/SGPT 76 U/L (12-78); BILIRUBIN,TOTAL 0.4 MG/DL (0.2-1.0); BLOOD UREA NITROGEN 11 MG/DL (7-18); CALCIUM LEVEL 8.9 MG/DL (8.5-10.1); CARBON DIOXIDE LEVEL 26 MEQ/L (21-32); CHLORIDE LEVEL 109 MEQ/L (98-107); CHOLESTEROL LEVEL 230 MG/DL (<200); CHOLESTEROL RISK RATIO 5.897 (<5); CREATININE FOR GFR 0.89 MG/DL (0.55-1.30); FOLATE 8.1 NG/ML; FREE T4 0.86 NG/DL (0.76-1.46); GLOMERULAR FILTRATION RATE > 60.0 (>58); GLUCOSE, FASTING 105 MG/DL (70-100); HDL CHOLESTEROL 39 MG/DL (>40); LDL CHOLESTEROL 129 MG/DL (<100); NON-HDL-C 191 MG/DL; POTASSIUM SERUM 4.3 MEQ/L (3.5-5.1); SODIUM LEVEL 141 MEQ/L (136-145); TOTAL 25(OH) VITAMIN D 50.1 NG/ML (30.0-100.0); TRIGLYCERIDES LEVEL 310 MG/DL (<150); VITAMIN B12 LEVEL 661 PG/ML
[2021-03-12 16:05] LABS: HEMOGLOBIN A1c 5.8 %
== END ==
LOC: M SFHCADAM 08:06
PROVIDERS: ATTEND Physician Assistant
DX: E55.9 Vitamin D deficiency, unspecified (principal); E53.8 Deficiency of other specified B group vitamins; R74.8 Abnormal levels of other serum enzymes; F32.9 Major depressive disorder, single episode, unspecified; R63.5 Abnormal weight gain; Z13.1 Encounter for screening for diabetes mellitus; Z13.220 Encounter for screening for lipoid disorders

== ENCOUNTER → 2022-05-14 | Outpatient (REF) | payer OTHER | LOC: M PLALAB 13:48 | PROVIDERS: ATTEND Nurse Practitioner Family | DX: Z12.4 Encounter for screening for malignant neoplasm of cervix (principal); R87.615 Unsatisfactory cytologic smear of cervix ==

== ENCOUNTER → 2022-05-21 | Outpatient (CLI) | payer OTHER | LOC: M WHC 06:50 | PROVIDERS: ATTEND Nurse Practitioner Family | DX: Z12.31 Encounter for screening mammogram for malignant neoplasm of breast (principal) ==

== ENCOUNTER → 2022-05-30 | Outpatient (REF) | payer OTHER | LOC: M PLALAB 09:30 | PROVIDERS: ATTEND Nurse Practitioner Family | DX: Z12.4 Encounter for screening for malignant neoplasm of cervix (principal); N76.0 Acute vaginitis ==

== ENCOUNTER → 2023-03-17 | Outpatient (REF) | payer OTHER ==
[2023-03-17 19:57] LABS: APPEARANCE, URINE HAZY (CLEAR); BACTERIA, URINE AUTO 1+ (NEGATIVE); BILIRUBIN, URINE AUTO NEGATIVE (NEGATIVE); BLOOD, URINE BLOOD NEGATIVE (NEGATIVE); CALCIUM OXALATE CRYSTALS MODERATE; COLOR, URINE YELLOW (YELLOW); GLUCOSE, URINE (UA) AUTO NEGATIVE (NEGATIVE); KETONE, URINE AUTO NEGATIVE (NEGATIVE); LEUKOCYTE ESTERASE, URINE AUTO 3+ (NEGATIVE); MUCUS, URINE SMALL (NEGATIVE); NITRITE, URINE AUTO NEGATIVE (NEGATIVE); PROTEIN, URINE AUTO NEGATIVE (NEGATIVE); RBC, URINE AUTO 5 /HPF (0-3); SPECIFIC GRAVITY URINE AUTO 1.019 (1.002-1.035); SQUAMOUS EPITHELIAL CELL UR AU 3 /HPF (0-6); UROBILINOGEN, URINE AUTO 0.2 mg/dL (0.0-2.0); WBC, URINE AUTO 58 /HPF (0-3)
== END ==
LOC: M LAB REF 19:33
PROVIDERS: ATTEND Physician Assistant Medical
DX: N39.0 Urinary tract infection, site not specified (principal)

== ENCOUNTER → 2023-12-30 | Outpatient (CLI) | payer OTHER | LOC: M WHC 16:25 | PROVIDERS: ATTEND Physician Assistant | DX: Z12.31 Encounter for screening mammogram for malignant neoplasm of breast (principal); Z53.9 Procedure and treatment not carried out, unspecified reason ==

== ENCOUNTER → 2024-01-06 | Outpatient (REF) | payer OTHER ==
[2024-01-06 13:53] LABS: BASO # 0.1 10^3/uL (0.0-0.2); EOS # 0.1 10^3/uL (0.0-0.5); EOS % 2.2 % (0.0-3.0); HEMATOCRIT 41.6 % (36.0-47.0); HEMOGLOBIN 14.1 g/dl (12.0-15.5); LYMPH # 1.8 10^3/uL (1.5-5.0); LYMPH % 30.4 % (24.0-44.0); MEAN CORPUSCULAR HEMOGLOBIN 31.8 pg (27.0-33.0); MEAN CORPUSCULAR HGB CONC 33.9 g/dl (32.0-36.5); MEAN CORPUSCULAR VOLUME 93.9 fl (80.0-96.0); MONO # 0.5 10^3/uL (0.0-0.8); MONO % 8.7 % (2.0-8.0); NEUTROPHILS # 3.4 10^3/uL (1.5-8.5); NEUTROPHILS % 57.4 % (36.0-66.0); PLATELET COUNT, AUTOMATED 266 10^3/uL (150-450); RED BLOOD COUNT 4.43 10^6/uL (4.00-5.40); WHITE BLOOD COUNT 5.9 10^3/uL (4.0-10.0)
[2024-01-06 14:04] LABS: HEMOGLOBIN A1c 6.5 % (4.0-6.0)
[2024-01-06 14:16] LABS: ALBUMIN 3.5 G/DL (3.2-5.2); ALKALINE PHOSPHATASE 120 U/L (46-116); ALT/SGPT 123 U/L (7.0-40); AST/SGOT 117 U/L (<34); BILIRUBIN,TOTAL 0.6 MG/DL (0.3-1.2); BLOOD UREA NITROGEN 13 MG/DL (9-23); CALCIUM LEVEL 9.1 MG/DL (8.5-10.1); CARBON DIOXIDE LEVEL 27 MMOL/L (20-31); CHLORIDE LEVEL 107 MMOL/L (98-107); CHOLESTEROL LEVEL 216 MG/DL (<200); CHOLESTEROL RISK RATIO 4.13 (<5); CREATININE FOR GFR 0.71 MG/DL (0.55-1.30); FERRITIN 291.1 NG/ML (7.3-270.7); FOLATE 11.8 NG/ML (>5.4); GLOMERULAR FILTRATION RATE > 60.0 (>51); GLUCOSE, FASTING 118 MG/DL (60-100); HDL CHOLESTEROL 52.3 MG/DL (>40); IRON (FE) 97 UG/DL (50-170); LDL CHOLESTEROL 132.5 MG/DL (<100); NON-HDL-C 163.7 MG/DL; POTASSIUM SERUM 4.2 MMOL/L (3.5-5.1); SODIUM LEVEL 140 MMOL/L (136-145); THYROID STIMULATING HORMONE 1.393 uIU/ML (0.55-4.78); TOTAL 25(OH) VITAMIN D 62.3 NG/ML (20.0-100.0); TOTAL IRON BINDING CAPACITY 313 UG/DL (250-425); TOTAL PROTEIN 6.3 G/DL (5.7-8.2); TRIGLYCERIDES LEVEL 156 MG/DL (<150)
[2024-01-06 14:17] LABS: VITAMIN B12 LEVEL 660 PG/ML (211-911)
[2024-01-06 14:18] LABS: FREE T4 0.93 NG/DL (0.89-1.76)
== END ==
LOC: M SFHCADAM 10:37
PROVIDERS: ATTEND Physician Assistant
DX: Z00.00 Encounter for general adult medical examination without abnormal findings (principal); Z12.31 Encounter for screening mammogram for malignant neoplasm of breast; Z12.11 Encounter for screening for malignant neoplasm of colon; E53.8 Deficiency of other specified B group vitamins; G47.33 Obstructive sleep apnea (adult) (pediatric); E66.01 Morbid (severe) obesity due to excess calories; Z13.220 Encounter for screening for lipoid disorders; Z13.1 Encounter for screening for diabetes mellitus; G25.0 Essential tremor; R00.1 Bradycardia, unspecified; R53.82 Chronic fatigue, unspecified

== ENCOUNTER → 2024-01-14 | Outpatient (REF) | payer OTHER ==
[2024-01-14 14:08] LABS: HEPATITIS B SURFACE ANTIBODY NEGATIVE (POSITIVE)
[2024-01-14 14:23] LABS: HEPATITIS B SURFACE ANTIGEN NEGATIVE (NEGATIVE)
[2024-01-14 14:40] LABS: HEPATITIS C VIRUS ABY INDEX < 0.02 INDEX (<0.8)
[2024-01-15 10:52] LABS: HEPATITIS B CORE ANTIBODY IGG NON-REACTIVE (NON-REACTIVE)
[2024-01-15 13:37] LABS: ANTI-MITOCHONDRIAL ANTIBODY NEGATIVE (NEGATIVE)
[2024-01-15 18:01] LABS: ANA SCREEN, IFA NEGATIVE (NEGATIVE)
== END ==
LOC: M SFHCADAM 09:10
PROVIDERS: ATTEND Physician Assistant
DX: R74.8 Abnormal levels of other serum enzymes (principal)

== ENCOUNTER → 2024-01-19 | Outpatient (REF) | payer OTHER, MEDICAID | LOC: M LAB REF 21:26 | PROVIDERS: ATTEND Physician Assistant Medical | DX: B34.9 Viral infection, unspecified (principal) ==

== ENCOUNTER → 2024-02-10 | Outpatient (CLI) | payer OTHER | LOC: M RAD 07:29 | PROVIDERS: ATTEND Physician Assistant | DX: R74.8 Abnormal levels of other serum enzymes (principal) ==

== ENCOUNTER → 2024-05-27 | Outpatient (REF) | payer OTHER ==
[~2024-05-27] MED LIST changes: -AZEL0.1S NARES; +AZEL137S8 NARES
== END ==
LOC: M LAB REF 20:45
PROVIDERS: ATTEND Physician Assistant Medical
DX: B34.9 Viral infection, unspecified (principal)

== ENCOUNTER → 2024-07-12 | Outpatient (CLI) | payer OTHER | LOC: M WHC 08:39 | PROVIDERS: ATTEND Physician Assistant | DX: Z12.31 Encounter for screening mammogram for malignant neoplasm of breast (principal) ==

== ENCOUNTER → 2024-08-16 | Outpatient (REF) | payer BC, OTHER ==
[2024-08-16 18:28] LABS: ALBUMIN 3.7 G/DL (3.2-5.2); ALKALINE PHOSPHATASE 99 U/L (35-104); ALT/SGPT 46 U/L (7.0-40); AST/SGOT 31 U/L (<34); BILIRUBIN,TOTAL 0.4 MG/DL (0.3-1.2); BLOOD UREA NITROGEN 13 MG/DL (9-23); CALCIUM LEVEL 9.4 MG/DL (8.5-10.1); CARBON DIOXIDE LEVEL 28 MMOL/L (20-31); CHLORIDE LEVEL 108 MMOL/L (98-107); CHOLESTEROL LEVEL 245 MG/DL (<200); CHOLESTEROL RISK RATIO 5.02 (<5); CREATININE FOR GFR 0.73 MG/DL (0.55-1.30); GLOMERULAR FILTRATION RATE > 60.0 (>51); GLUCOSE, FASTING 134 MG/DL (60-100); HDL CHOLESTEROL 48.8 MG/DL (>40); LDL CHOLESTEROL 139.4 MG/DL (<100); NON-HDL-C 196.2 MG/DL; POTASSIUM SERUM 4.1 MMOL/L (3.5-5.1); SODIUM LEVEL 143 MMOL/L (136-145); TOTAL PROTEIN 6.8 G/DL (5.7-8.2); TRIGLYCERIDES LEVEL 284 MG/DL (<150)
[2024-08-16 19:00] LABS: HEMOGLOBIN A1c 5.6 % (4.0-6.0)
== END ==
LOC: M SFHCADAM 14:41
PROVIDERS: ATTEND Physician Assistant
DX: K76.0 Fatty (change of) liver, not elsewhere classified (principal); E66.01 Morbid (severe) obesity due to excess calories; R74.8 Abnormal levels of other serum enzymes; E11.9 Type 2 diabetes mellitus without complications

== ENCOUNTER 2024-09-19 10:25 | Day surgery (SDC) | payer OTHER ==
[~2024-09-19] VITALS: Ht 172.7 cm; Wt 99.6 kg
[~2024-09-19 10:25] MED LIST changes: +CALCCHW4 PO; +CALCIUM MAG ZINC PO; +HAIR1CHW2 PO; +LIDOCAINE 2% 100MG/5ML SDV (FOR ANES.) As Ordered ONE; +OMEP40CA4 PO; +SEMA1PEN2 SC; +propofoL 200 MG/20 ML VIAL As Ordered ONE; +tumeric PO
[2024-09-19] MEDS ORDERED: fentaNYL 100 MCG/2 ML INJECTION As Ordered ONE (10:56)
[2024-09-19 11:27] VITALS: TEMP 97.5
[2024-09-19 11:44] VITALS: BP 127/78; O2SAT 94
== END 2024-09-19 12:25 | disposition home or self-care (01) ==
LOC: M OPP 10:25
PROVIDERS: ATTEND Internal Medicine Gastroenterology
DX: Z12.11 Encounter for screening for malignant neoplasm of colon (principal); K64.0 First degree hemorrhoids; K44.9 Diaphragmatic hernia without obstruction or gangrene; K31.89 Other diseases of stomach and duodenum; R12 Heartburn; G47.30 Sleep apnea, unspecified; Z88.0 Allergy status to penicillin; Z88.8 Allergy status to other drugs, medicaments and biological substances; Z91.018 Allergy to other foods; Z91.048 Other nonmedicinal substance allergy status; Z79.51 Long term (current) use of inhaled steroids; Z79.85 Long-term (current) use of injectable non-insulin antidiabetic drugs; Z79.899 Other long term (current) drug therapy
CPT/HCPCS: 43239; 45378; 88305; J3010

== ENCOUNTER → 2025-06-14 | Outpatient (REF) | payer BC, OTHER ==
[~2025-06-14] MED LIST changes: -LIDOCAINE 2% 100MG/5ML SDV (FOR ANES.) As Ordered ONE; +MORP-138 PO; -MORP15TASA PO; -propofoL 200 MG/20 ML VIAL As Ordered ONE
[2025-06-14 14:04] LABS: ALT/SGPT 52 U/L (7.0-40); AST/SGOT 43 U/L (<34); CALCIUM LEVEL 9.0 MG/DL (8.5-10.1); CARBON DIOXIDE LEVEL 29 MMOL/L (20-31); CHLORIDE LEVEL 106 MMOL/L (98-107); CHOLESTEROL LEVEL 248 MG/DL (<200); CHOLESTEROL RISK RATIO 5.21 (<5); CREATININE FOR GFR 0.74 MG/DL (0.55-1.30); GLOMERULAR FILTRATION RATE > 90.0 (>51); LDL CHOLESTEROL 157.8 MG/DL (<100); NON-HDL-C 200.4 MG/DL; POTASSIUM SERUM 4.7 MMOL/L (3.5-5.1); SODIUM LEVEL 146 MMOL/L (136-145); TRIGLYCERIDES LEVEL 213 MG/DL (<150)
[2025-06-14 14:56] LABS: ESTIMATED AVERAGE GLUCOSE 134.0 MG/DL (60-110)
== END ==
LOC: M SFHCADAM 09:09
PROVIDERS: ATTEND Physician Assistant
DX: E11.9 Type 2 diabetes mellitus without complications (principal); K76.0 Fatty (change of) liver, not elsewhere classified; E78.00 Pure hypercholesterolemia, unspecified